=== PATIENT | male | born 1950 | race Caucasian/White ===

== ENCOUNTER 2016-09-05 08:02 | Emergency (ER) | payer MEDICARE, BC ==
[2016-09-05] MEDS ORDERED: Dexamethasone 4 MG/ML SDV IVPUSH ONE (08:46)
[2016-09-05] MEDS ORDERED: Diazepam 5 MG Tab PO ONE (08:46)
[2016-09-05] MEDS ORDERED: Ketorolac 30 MG/ML SDV IVPUSH ONE (08:46)
[2016-09-05] MEDS ORDERED: Sodium Chloride 0.9% 5 ML Syringe FLUSH PRN (08:47)
[2016-09-05] MEDS ORDERED: Acetaminophen/oxyCODONE 325-5 MG Tab PO ONE ×2 (09:41→09:42)
--- NOTE | 2016-09-05 09:41 | EDM.PDOC ---
ED HPI LOWER BACK PAIN/INJURY - General Chief Complaint: Back Pain or Injury Stated Complaint: back pain Time Seen by Provider: 09/05/16 08:46 Source of Information: Reports: Patient History Limitations: Reports: No limitations - History of Present Illness Timing/Duration: Reports: Day(s): Location: Reports: lower, paraspinal. 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 - Related Data Allergies/ADRs: Allergies Allergy/AdvReac Type Severity Reaction Status Date / Time No Known Allergies Allergy Verified 09/05/16 08:13 Home Meds: Home Meds Fish Oil/[place]-3 Fatty Acids [Fish Oil 1,000 MG] 2,000 units PO DAILY 12/10/15 [ History] Multivitamin [Multivitamins] 1 each PO DAILY 12/10/15 [History] Omeprazole [Omeprazole] 20 mg PO DAILY 12/10/15 [History] Rivaroxaban [Xarelto] 20 mg PO DAILY #90 tablet 12/10/15 [Rx] Ubidecarenone [Co Q-10] 1 tab PO DAILY 12/10/15 [History] Lisinopril/Hydrochlorothiazide [Lisinopril-Hctz 10-12.5 mg Tab] 1 tab PO DAILY 09/05/16 [History] Methocarbamol [Robaxin-750] 750 mg PO Q6HR #20 tablet 09/05/16 [Rx] Prednisone [IJD: predniSONE] 40 mg PO WITHBREAKFAST #10 tab 09/05/16 [Rx] Past Medical History Cardiovascular History: Reports: Afib, High cholesterol, Hypertension, Pacemaker , Other (see below) Other Cardiovascular History: pacemaker placed 2015 Gastrointestinal History: Reports: GERD, Hiatal hernia Musculoskeletal History: Reports: Arthritis, Other (see below) Other Musculoskeletal History: lower back pain, right side worse than left side - Past Surgical History HEENT Surgical History: Reports: Adenoidectomy, Tonsillectomy Cardiovascular Surgical History: Reports: Pacer GI Surgical History: Reports: Colonoscopy, Hernia, inguinal Musculoskeletal Surgical History: Reports: Arthroscopic knee, Other (see below) Other Musculoskeletal Surgeries/Procedures:: knee joint injections Social & Family History - Family History Family Medical History: Noncontributory - Tobacco Use Smoking Status *Q: Never Smoker - Recreational Drug Use Recreational Drug Use: No ED ROS GENERAL - Review of Systems Review Of Systems: ROS reveals no pertinent complaints other than HPI. Constitutional: Reports: no symptoms HEENT: Reports: No symptoms Respiratory: Reports: No Symptoms Cardiovascular: Reports: No symptoms Endocrine: Reports: no symptoms GI/Abdominal: Reports: No symptoms : Reports: no symptoms Musculoskeletal: Reports: back pain Skin: Reports: no symptoms Neurological: Reports: No Symptoms Psychiatric: Reports: No symptoms Hematologic/Lymphatic: Reports: no symptoms Immunologic: Reports: no symptoms ED EXAM,LOWER BACK PAIN/INJURY - Physical Exam Exam: See Below Exam Limited By: No limitations General Appearance: alert, WD/WN, mild distress Throat/Mouth: Normal inspection, Normal oropharynx, No airway compromise Head: atraumatic, normocephalic Neck: normal inspection, supple, non-tender, full range of motion Respiratory/Chest: no respiratory distress, lungs clear, normal breath sounds, no accessory muscle use, chest non-tender Cardiovascular: regular rate, rhythm, no murmur GI/Abdominal: normal bowel sounds, soft, non tender, no organomegaly, no distention, no abnormal bruit, no mass Back Exam: paraspinal tenderness. No: CVA tenderness (L), CVA tenderness (R), decreased range of motion, vertebral tenderness Extremities: normal inspection, normal range of motion, non-tender, no pedal edema, normal capillary refill Neurological: alert, normal mood/affect, normal dorsiflexion, normal plantar flexion, no motor/sensory deficits, oriented x 3 Psychiatric: normal affect, normal mood Skin Exam: Warm, Dry, Intact, Normal color, No rash Lymphatic: no adenopathy Course - Vital Signs Last Recorded V/S: Last Vital Signs Temp 96.9 F 09/05/16 08:05 Pulse 73 09/05/16 09:18 Resp 16 09/05/16 08:05 BP 141/80 H 09/05/16 09:18 Pulse Ox 99 09/05/16 08:05 - Orders/Labs/Meds Orders: Active Orders 24 hr Category Date Time Status Peripheral IV Care [RC] . DIRECTED Care 09/05/16 08:47 Ordered Lumbar Spine 2 or 3V [CR] Stat Exams 09/05/16 08:14 Ordered Sodium Chloride 0.9% [Syrex Flush] Med 09/05/16 08:47 Ordered 5 ml FLUSH Q8HR PRN Peripheral IV Insertion Adult [OM.PC] Routine Oth 09/05/16 08:47 Ordered Medication Orders Sodium Chloride (Syrex Flush) 5 ml FLUSH Q8HR PRN PRN Reason: Keep Vein Open Meds: Medications Generic Name Dose Route Start Last Admin Trade Name Freq PRN Reason Stop Dose Admin Sodium Chloride 5 ml 09/05/16 08:47 Syrex Flush FLUSH Q8HR PRN Keep Vein Open Discontinued Medications Generic Name Dose Route Start Last Admin Trade Name Freq PRN Reason Stop Dose Admin Dexamethasone 8 mg 09/05/16 08:46 09/05/16 09:03 Dexamethasone IVPUSH 09/05/16 08:47 8 mg ONETIME ONE Administration Diazepam 5 mg 09/05/16 08:46 09/05/16 09:02 Valium. PO 09/05/16 08:47 5 mg ONETIME ONE Administration Ketorolac Tromethamine 30 mg 09/05/16 08:46 09/05/16 09:02 Toradol IVPUSH 09/05/16 08:47 30 mg ONETIME ONE Administration - Radiology Interpretation Free Text/Narrative:: LUMBAR XRAY SHAOWS DEGENERATIVE CHANGES - Re-Assessments/Exams Free Text/Narrative Re-Assessment/Exam: 09/05/16 09:48 PT AFEBRILE, NONTOXIC APPEARING, VSS, PAIN MOSTLY RELIEVED. Departure - Departure Time of Disposition: 09:49 Disposition: Home, Self-Care 01 Condition: good Clinical Impression: Degenerative disc disease, lumbar Low back pain Qualifiers: Chronicity: acute Back pain laterality: bilateral Sciatica presence: without sciatica Qualified Code(s): M54.5 - Low back pain Instructions: Back Pain, Adult, [id number], Muscle Strain, [id number], Pain Medicine Instructions, [id number], Back Injury Prevention, [id number], Degenerative Disk Disease Forms: ED Department Discharge Additional Instructions: FOLLOW UP WITH [facility] IN NEXT 2-3 DAYS - My Orders Last 24 Hours: My Active Orders 09/05/16 08:14 Lumbar Spine 2 or 3V [CR] Stat 09/05/16 08:47 Peripheral IV Care [RC] . DIRECTED Sodium Chloride 0.9% [Syrex Flush] 5 ml FLUSH Q8HR PRN Peripheral IV Insertion Adult [OM.PC] Routine - Assessment/Plan Last 24 Hours: My Active Orders 09/05/16 08:14 Lumbar Spine 2 or 3V [CR] Stat 09/05/16 08:47 Peripheral IV Care [RC] . DIRECTED Sodium Chloride 0.9% [Syrex Flush] 5 ml FLUSH Q8HR PRN Peripheral IV Insertion Adult [OM.PC] Routine Assessment:: LOW BACK PAIN / DEGENERATIVE DISC DISEASE Plan: F/U AT [facility] IN NEXT 2-3 DAYS
[2016-09-05] MEDS ORDERED: Acetaminophen/oxyCODONE 325-5 MG Tab ONE ×2 (09:42→09:43)
[2016-09-05 11:16] VITALS: BP 141/80
== END 2016-09-05 10:00 | disposition home or self-care (01) ==
LOC: KA.ED 08:02
DX: M47.816 Spondylosis without myelopathy or radiculopathy, lumbar region (principal); K21.9 Gastro-esophageal reflux disease without esophagitis; I10 Essential (primary) hypertension; I48.91 Unspecified atrial fibrillation; Z95.0 Presence of cardiac pacemaker; Z98.890 Other specified postprocedural states; Z79.899 Other long term (current) drug therapy
CPT/HCPCS: 72100; 96374; 96375; 99283; A9270; J1100; J1885; 99284

== ENCOUNTER 2018-12-02 20:21 | Emergency (ER) | payer MEDICARE, BC ==
[2018-12-02 20:33] VITALS: BP 152/84; PULSE 63
[2018-12-02] MEDS ORDERED: Ketorolac 60 MG/2 ML SDV IM SCH (20:45)
--- NOTE | 2018-12-02 21:21 | EDM.PDOC ---
ED HPI GENERAL MEDICAL PROBLEM - General Chief Complaint: Upper Extremity Injury/Pain Stated Complaint: RIGHT ARM PAIN Time Seen by Provider: 12/02/18 21:00 Source of Information: Reports: Patient History Limitations: Reports: No Limitations - History of Present Illness INITIAL COMMENTS - FREE TEXT/NARRATIVE: 68 YO WM presents to ER complaining of right shoulder pain which began yesterday. Pt reports he noticed some mild discomfort after mowing the lawn but took tylenol and his pain improved. Pt states he slept fine without much discomfort throught the night, but when he woke this am he was having a lot of pain with elevating his arm over his head. Pt was able to go fishing all day, but when he got home, the pain felt worse prompting ER evaluation. Pt denies chest pain, shortness of breath, nausea/vomiting, or diaphoresis. Pt reports pain is only with movement. Onset Date: 12/01/18 Duration: Day(s): (2) Location: Reports: Upper Extremity, Right Severity: Moderate Improves with: Reports: Rest Worsens with: Reports: Movement Associated Symptoms: Reports: No Other Symptoms Right Shoulder Pain Score (Numeric/FACES): 9 - Related Data Allergies Allergy/AdvReac Type Severity Reaction Status Date / Time No Known Allergies Allergy Verified 12/02/18 20:28 Home Meds: Home Meds Fish Oil/[place]-3 Fatty Acids [Fish Oil 1,000 MG] 2,000 units PO DAILY 12/10/15 [ History] Multivitamin [Multivitamins] 1 each PO DAILY 12/10/15 [History] Omeprazole 20 mg PO DAILY 12/10/15 [History] Rivaroxaban [Xarelto] 20 mg PO DAILY #90 tablet 12/10/15 [Rx] Ubidecarenone [Co Q-10] 1 tab PO DAILY 12/10/15 [History] Lisinopril/Hydrochlorothiazide [Lisinopril-Hctz 10-12.5 mg Tab] 1 tab PO DAILY 09/05/16 [History] Past Medical History HEENT History: Reports: Impaired Vision Cardiovascular History: Reports: Afib, Hypertension, Pacemaker Other Cardiovascular History: pacemaker placed 2015 Gastrointestinal History: Reports: Colon Polyp, GERD, Hiatal Hernia Musculoskeletal History: Reports: Arthritis, Other (See Below) Other Musculoskeletal History: history of right shoulder injury in 1985 - Infectious Disease History Infectious Disease History: Reports: Chicken Pox, Measles, Mumps - Past Surgical History HEENT Surgical History: Reports: Adenoidectomy, Tonsillectomy Cardiovascular Surgical History: Reports: Pacer GI Surgical History: Reports: Colonoscopy, Hernia, Inguinal Musculoskeletal Surgical History: Reports: Arthroscopic Knee Social & Family History - Family History Family Medical History: Noncontributory - Tobacco Use Smoking Status *Q: Never Smoker - Caffeine Use Caffeine Use: Reports: Soda - Recreational Drug Use Recreational Drug Use: No Review of Systems - Review of Systems Review Of Systems: See Below Constitutional: Reports: No Symptoms Eyes: Reports: No Symptoms Ears: Reports: No Symptoms Nose: Reports: No Symptoms Mouth/Throat: Reports: No Symptoms Respiratory: Reports: No Symptoms Cardiovascular: Reports: No Symptoms GI/Abdominal: Reports: No Symptoms Genitourinary: Reports: No Symptoms Musculoskeletal: Reports: Shoulder Pain (right shoulder) Skin: Reports: No Symptoms Neurological: Reports: No Symptoms Psychiatric: Reports: No Symptoms ED EXAM, GENERAL - Physical Exam Exam: See Below Exam Limited By: No Limitations General Appearance: Alert, WD/WN, No Apparent Distress Head: Atraumatic, Normocephalic Neck: Normal Inspection, Supple, Non-Tender, Full Range of Motion Respiratory/Chest: No Respiratory Distress, Lungs Clear, Normal Breath Sounds, No Accessory Muscle Use, Chest Non-Tender Cardiovascular: Normal Peripheral Pulses, Regular Rate, Rhythm, No Edema, No Gallop, No JVD, No Murmur, No Rub GI/Abdominal: Normal Bowel Sounds, Soft, Non-Tender, No Organomegaly, No Distention, No Abnormal Bruit, No Mass Back Exam: Normal Inspection, Full Range of Motion, NT Extremities: Normal Inspection, No Pedal Edema, Normal Capillary Refill, Arm Pain (pain in right shoulder with active/passive lateral flexion, forward flexion and external rotation. no point tenderness noted. ), Limited Range of Motion Neurological: Alert, Oriented, CN II-XII Intact, Normal Cognition, Normal Gait, Normal Reflexes, No Motor/Sensory Deficits Psychiatric: Normal Affect, Normal Mood Skin Exam: Warm, Dry, Intact, Normal Color, No Rash Lymphatic: No Adenopathy Course - Vital Signs Last Recorded V/S: Last Vital Signs Temp 36.8 C 12/02/18 20:30 Pulse 63 12/02/18 20:30 Resp 20 12/02/18 20:30 BP 152/84 H 12/02/18 20:30 Pulse Ox 95 12/02/18 20:30 - Orders/Labs/Meds Orders: Active Orders 24 hr Category Date Time Status Shoulder Comp Rt [CR] Stat Exams 12/02/18 20:43 Ordered Ketorolac [Toradol] Med 12/02/18 20:45 Active 60 mg IM ONETIME Medication Orders Ketorolac Tromethamine (Toradol) 60 mg IM ONETIME ARASH Last Admin: 12/02/18 20:50 Dose: 60 mg Meds: Medications Generic Name Dose Route Start Last Admin Trade Name Lucero PRN Reason Stop Dose Admin Ketorolac Tromethamine 60 mg 12/02/18 20:45 12/02/18 20:50 Toradol IM 60 mg ONETIME ARASH Administration - Radiology Interpretation Free Text/Narrative:: right shoulder- NAD Departure - Departure Time of Disposition: 21:36 Disposition: Home, Self-Care 01 Condition: Good Clinical Impression: Bursitis of shoulder Qualifiers: Laterality: right Qualified Code(s): M75.51 - Bursitis of right shoulder Shoulder pain, right Qualifiers: Chronicity: acute Qualified Code(s): M25.511 - Pain in right shoulder - Discharge Information Instructions: Bursitis, [id number], Shoulder Pain Referrals: Kayleigh Layne MD [Primary Care Provider] - Additional Instructions: 1. right shoulder pain- suspect bursitis 2. discharge home 3. prednisone 40mg PO QD x 5 days 4. rest/ice 5. follow up with PCP for further evaluation and treatment 6. return to ER for worsening symptoms - My Orders Last 24 Hours: My Active Orders 12/02/18 20:43 Shoulder Comp Rt [CR] Stat 12/02/18 20:45 Ketorolac [Toradol] 60 mg IM ONETIME - Assessment/Plan Last 24 Hours: My Active Orders 12/02/18 20:43 Shoulder Comp Rt [CR] Stat 12/02/18 20:45 Ketorolac [Toradol] 60 mg IM ONETIME Assessment:: 1. right shoulder pain- suspect bursitis Plan: 1. right shoulder pain- suspect bursitis 2. discharge home 3. prednisone 40mg PO QD x 5 days 4. rest/ice 5. follow up with PCP for further evaluation and treatment 6. return to ER for worsening symptoms
[2018-12-02] MEDS ORDERED: predniSONE 20 MG Tab PO ONE (21:38)
== END 2018-12-02 21:50 | disposition home or self-care (01) ==
LOC: KA.ED 20:21
DX: M75.51 Bursitis of right shoulder (principal); I48.91 Unspecified atrial fibrillation; I10 Essential (primary) hypertension; K21.9 Gastro-esophageal reflux disease without esophagitis; Z79.899 Other long term (current) drug therapy
CPT/HCPCS: 73030; 96372; 99283; A9270; J1885

== ENCOUNTER 2021-04-15 06:56 | Day surgery (SDC) | payer MEDICARE, BC ==
[2021-04-15] MEDS ORDERED: Lactated Ringers 1,000 ML IV SCH (07:00)
[2021-04-15] MEDS ORDERED: Sodium Chloride 0.9% 10 ML Syringe FLUSH PRN (07:00)
[2021-04-15] MEDS ORDERED: Midazolam 1 MG/ML 2 ML SDV ONE (08:08)
[2021-04-15] MEDS ORDERED: Propofol 200 MG/20 ML SDV ONE (08:08)
--- NOTE | 2021-04-15 08:50 | PCM.OPNOTE ---
- General Post-Op/Procedure Note Date of Surgery/Procedure: 04/15/21 Operative Procedure(s): Colonoscopy and polypectomy Findings: Small polyp was identified at 40 cm. This was removed using a cold biopsy forceps. The biopsy site was observed for several minutes and no active bleeding was encountered. Pre Op Diagnosis: Small polyp at 40 cm, otherwise negative. Screening colonoscopy. Post-Op Diagnosis: Small polyp at 40 cm, otherwise negative. Anesthesia Technique: MAC Primary Surgeon: Mio Leon Complications: None Condition: Good Free Text/Narrative:: INFORMED CONSENT: Patient is here today for elective colonoscopy. All aspects of this procedure have been discussed with the patient. All possible com plications also, including possibility of perforation, infection, pain, bleeding and unknown complications. In the event of perforation patient may need to have abdominal exploration, colon resection, colostomy and even was discussed. Anesthetic complications were handled by anesthesia department. The patient understands fully well. Patient did not have any further questions for me at th e end of my interview. The patient wishes for me to proceed. PREOPERATIVE DIAGNOSIS/INDICATIONS: [Screening colonoscopy] POSTOPERATIVE DIAGNOSIS: [Small polyp at 40 cm otherwise negative colonoscopy] INSTRUMENT USED: Olympus videocolonoscope. ASA CLASSIFICATION: [2] ANESTHESIA: Continuous EKG, oximetry and intermittent blood pressure and respiratory monitoring were performed throughout the procedure. IV Versed and Fentanyl were administered. PROCEDURE PERFORMED: Colonoscopy POSITIONS OF PATIENT: Left lateral. RECTUM: Normal. SIGMOID COLON: Normal. DESCENDING COLON: Normal except for small polyp at 40 cm which was removed using the cold biopsy forceps. We inspected the biopsy site for several minutes. No active bleeding was encountered.. SPLENIC FLEXURE: Normal. TRANSVERSE COLON: Normal. HEPATIC FLEXURE: Normal. ASCENDING COLON: Normal. CECUM: Normal. ILEOCECAL VALVE: Normal. BIOPSY: None. TOLERANCE: Excellent. COMPLICATIONS: None.
[2021-04-15 09:22] VITALS: PULSE 60
[2021-04-15 09:29] VITALS: BP 111/69
== END 2021-04-15 10:00 | disposition home or self-care (01) ==
LOC: KA.SDS 06:56
PROVIDERS: ATTEND Family Medicine
DX: D12.4 Benign neoplasm of descending colon (principal); I10 Essential (primary) hypertension; K21.9 Gastro-esophageal reflux disease without esophagitis; I48.20 Chronic atrial fibrillation, unspecified; G89.29 Other chronic pain; E66.9 Obesity, unspecified; Z79.899 Other long term (current) drug therapy; Z68.28 Body mass index [BMI] 28.0-28.9, adult
CPT/HCPCS: 00812; J2250; J2704; J7120

== ENCOUNTER 2024-02-07 07:01 | Day surgery (SDC) | payer MEDICARE, BC ==
[2024-02-07] MEDS: Lactated Ringers 1,000 ML IV SCH (07:14)
[2024-02-07] MEDS ORDERED: Lidocaine 2% 100 MG/5 ML Syringe ONE (07:44)
[2024-02-07] MEDS ORDERED: Glycopyrrolate 0.2 MG/ML SDV ONE (07:44)
[2024-02-07] MEDS ORDERED: Midazolam 1 MG/ML 2 ML SDV ONE (07:44)
[2024-02-07] MEDS ORDERED: Propofol 200 MG/20 ML SDV ONE (07:44)
[2024-02-07] MEDS ORDERED: Sodium Chloride 0.9% 10 ML Syringe FLUSH PRN (08:00)
[2024-02-07 10:06] VITALS: BP 122/71; PULSE 60
== END 2024-02-07 09:57 | disposition home or self-care (01) ==
LOC: KA.SDS 07:01
PROVIDERS: ATTEND Family Medicine
DX: K29.80 Duodenitis without bleeding (principal)
CPT/HCPCS: J2250; J2704; J3490; J7120